=== PATIENT | male | born 1955 | race Caucasian/White ===

== ENCOUNTER 2017-02-02 19:59 | Inpatient (IN) | payer BC ==
[~2017-02-02] VITALS: Ht 188 cm; Wt 89.8 kg
[~2017-02-02 19:59] MED LIST: GABA-531 PO; LIB10 PO; OMEP20CA10 PO; PANT20TA2 PO
[2017-02-02 20:00] VITALS: BP_SYST 145
[2017-02-02] MEDS ORDERED: NITROGLYCERIN 0.4 MG TAB.SUBL SL ONE (20:15)
[2017-02-02] MEDS ORDERED: ASPIRIN 325 MG TABLET PO ONE (20:15)
[2017-02-02 20:45] LABS: BASOPHILS % (AUTO) 0.6 % (0.0-2.0); EOSINOPHILS % (AUTO) 0.7 % (0.0-4.0); HEMATOCRIT 41.6 % (36-54); LYMPHOCYTES # (AUTO) 1.6 K/uL (1.0-5.5); LYMPHOCYTES % (AUTO) 40.2 % (20.5-51.5); MEAN CORPUSCULAR HEMOGLOBIN 24 pg (27-31); MEAN CORPUSCULAR HGB CONC 31 % (32-36); MEAN CORPUSCULAR VOLUME 77 fL (79.0-98.0); MONOCYTES # (AUTO) 0.6 K/uL (0.0-1.0); MONOCYTES % (AUTO) 13.9 % (1.7-9.3); NEUTROPHILS # (AUTO) 1.9 K/uL (1.8-7.7); NEUTROPHILS % (AUTO) 44.6 % (40.0-70.0); PLATELET COUNT (AUTO) 339 K/uL (130-430); RED BLOOD CELL COUNT(AUTO) 5.42 MIL/uL (4.2-6.2); RED CELL DISTRIBUTION WIDTH 18.7 % (9.0-15.0); WHITE BLOOD COUNT (AUTO) 4.1 K/uL (4.8-10.8)
[2017-02-02 20:49] LABS: ANION GAP 14 (5-15); CALCIUM 8.6 mg/dL (8.4-11.0); CHLORIDE 104 mmol/L (98-107); CREATININE 0.91 mg/dL (0.55-1.30); GLUCOSE 102 mg/dL (70-99); POTASSIUM 3.3 mmol/L (3.5-5.1); SODIUM SERUM 145 mmol/L (136-145); UREA NITROGEN, BLOOD 10 mg/dL (8-21)
[2017-02-02 20:50] LABS: GFR AFRICAN AMERICAN 109 mL/min (>90)
[2017-02-02 20:55] LABS: ALANINE AMINOTRANSFERASE 35 U/L (12-78); ALBUMIN 3.7 g/dL (3.4-4.8); ASPARTATE AMINOTRANSFERASE 25 U/L (10-37); CREATINE KINASE, TOTAL 94 U/L (39-308); PROTHROMBIN TIME 10.8 SECS (9.5-12.5); TOTAL BILIRUBIN 0.3 mg/dL (0.0-1.0); TOTAL PROTEIN, SERUM 8.6 g/dL (6.4-8.3)
[2017-02-02 20:59] LABS: ACETAMINOPHEN < 1 ug/mL (1-30); SALICYLATE 1 mg/dL (3-30)
[2017-02-02 21:04] LABS: ALCOHOL, BLOOD 341 mg/dL (<10)
[2017-02-02] MEDS ORDERED: ONDANSETRON HCL 4 MG/2 ML VIAL IVP PRN (23:30)
[2017-02-02] MEDS ORDERED: FOLIC ACID 1 MG, THIAMINE HCL 100 MG, MAGNESIUM SULFATE 1 GM, MVI 10 ML in NACL 0.9% 1,... IV ONE (23:30)
[2017-02-03 01:16] VITALS: BP_SYST 147
[2017-02-03] MEDS: LORazepam 2 MG/ML VIAL IVP PRN ×3 (01:33→11:52)
[2017-02-03 04:00] VITALS: BP_SYST 146
[2017-02-03 06:39] LABS: EOSINOPHILS # (AUTO) 0.1 K/uL (0.0-0.4); EOSINOPHILS % (AUTO) 1.7 % (0.0-4.0); HEMATOCRIT 40.5 % (36-54); HEMOGLOBIN 12.6 g/dL (14.0-18.0); LYMPHOCYTES # (AUTO) 1.1 K/uL (1.0-5.5); LYMPHOCYTES % (AUTO) 31.5 % (20.5-51.5); MEAN CORPUSCULAR HEMOGLOBIN 24 pg (27-31); MEAN CORPUSCULAR HGB CONC 31 % (32-36); MEAN CORPUSCULAR VOLUME 77 fL (79.0-98.0); MONOCYTES # (AUTO) 0.5 K/uL (0.0-1.0); MONOCYTES % (AUTO) 15.5 % (1.7-9.3); NEUTROPHILS # (AUTO) 1.8 K/uL (1.8-7.7); NEUTROPHILS % (AUTO) 50.3 % (40.0-70.0); PLATELET COUNT (AUTO) 313 K/uL (130-430); RED BLOOD CELL COUNT(AUTO) 5.25 MIL/uL (4.2-6.2); RED CELL DISTRIBUTION WIDTH 18.6 % (9.0-15.0); WHITE BLOOD COUNT (AUTO) 3.5 K/uL (4.8-10.8)
[2017-02-03 07:01] LABS: CALCIUM 8.5 mg/dL (8.4-11.0); CREATININE 0.83 mg/dL (0.55-1.30); POTASSIUM 3.4 mmol/L (3.5-5.1)
[2017-02-03 07:23] LABS: ALBUMIN 3.5 g/dL (3.4-4.8); TOTAL BILIRUBIN 0.3 mg/dL (0.0-1.0); TOTAL PROTEIN, SERUM 8.2 g/dL (6.4-8.3)
[2017-02-03 07:45] VITALS: BP_SYST 176
[2017-02-03] MEDS ORDERED: PANTOPRAZOLE SODIUM 40 MG TAB PO SCH (09:00)
[2017-02-03] MEDS ORDERED: ASPIRIN 325 MG TABLET PO SCH (09:00)
[2017-02-03] MEDS ORDERED: ENOXAPARIN SODIUM 40 MG/0.4 ML SYRINGE SUBCUT SCH (09:00)
[2017-02-03] MEDS ORDERED: METOPROLOL TARTRATE 25 MG TABLET PO SCH (09:00)
[2017-02-03] MEDS ORDERED: FOLIC ACID 1 MG, THIAMINE HCL 100 MG, MAGNESIUM SULFATE 1 GM, MVI 10 ML in NACL 0.9% 1,... IV ONE (10:30)
[2017-02-03] MEDS ORDERED: THIAMINE HCL 100 MG TABLET PO ONE (11:15)
[2017-02-03] MEDS ORDERED: FOLIC ACID 1 MG TABLET PO ONE (11:30)
[2017-02-03 11:33] VITALS: BP_SYST 149
[2017-02-03] MEDS ORDERED: METO25TA6 PO (13:34)
[2017-02-03] MEDS ORDERED: ASPI81TA2 PO (13:35)
[2017-02-03] MEDS ORDERED: PRO40 PO (13:35)
[2017-02-03] MEDS ORDERED: THIA100T13 PO (13:36)
[2017-02-03] MEDS ORDERED: FOLI-43 PO (13:37)
[2017-02-03] MEDS ORDERED: chlordiazePOXIDE HCL 25 MG CAPSULE PO SCH (15:00)
[2017-02-03 15:06] VITALS: BP_SYST 150
[2017-02-03 16:04] VITALS: BP_SYST 150
[2017-02-03] MEDS ORDERED: chlordiazePOXIDE HCL 10 MG CAPSULE PO SCH (18:00)
[2017-02-03] MEDS ORDERED: OMEPRAZOLE 20 MG CAPSULE.DR (PriLOSEC) PO SCH (21:00)
[2017-02-03] MEDS ORDERED: GABAPENTIN 300 MG CAPSULE PO SCH (21:00)
[2017-02-04] MEDS ORDERED: THIAMINE HCL 100 MG TABLET PO SCH (09:00)
[2017-02-04] MEDS ORDERED: METOPROLOL TARTRATE 25 MG TABLET PO SCH (09:00)
[2017-02-04] MEDS ORDERED: FOLIC ACID 1 MG TABLET PO SCH (09:00)
== END 2017-02-03 18:15 | disposition home or self-care (01) | DRG 313 ==
LOC: SED 19:59 → STU 23:18
DX: R07.89 Other chest pain (principal); F10.229 Alcohol dependence with intoxication, unspecified; Z81.1 Family history of alcohol abuse and dependence; I25.2 Old myocardial infarction; I10 Essential (primary) hypertension; K22.70 Barrett's esophagus without dysplasia; Y90.8 Blood alcohol level of 240 mg/100 ml or more; Z79.899 Other long term (current) drug therapy
CPT/HCPCS: 36415; 71010; 80053; 82550-TC; 84484; 85025; 85610-TC; 85730-TC; 93005; 93306; 99285; G0480; G0481; G0482; J1650; J2060; J2405; J3411; J3475; J3490; J7030

== ENCOUNTER 2017-02-17 18:22 | Emergency (ER) | payer BC ==
[~2017-02-17] VITALS: Ht 193 cm; Wt 95.3 kg
[~2017-02-17 18:22] MED LIST changes: +ASPI81TA2 PO; +FOLI-43 PO; +METO25TA6 PO; -PANT20TA2 PO; +PRO40 PO; +THIA100T13 PO
[2017-02-17 18:24] VITALS: BP_SYST 138
[2017-02-17] MEDS ORDERED: chlordiazePOXIDE HCL 25 MG CAPSULE PO ONE (18:30)
[2017-02-17 19:03] LABS: LYMPHOCYTES # (AUTO) 1.6 K/uL (1.0-5.5); MONOCYTES # (AUTO) 0.6 K/uL (0.0-1.0)
[2017-02-17 19:06] LABS: BASOPHILS % (AUTO) 0.7 % (0.0-2.0); EOSINOPHILS % (AUTO) 0.9 % (0.0-4.0); HEMATOCRIT 42.7 % (36-54); HEMOGLOBIN 13.5 g/dL (14.0-18.0); LYMPHOCYTES % (AUTO) 38.1 % (20.5-51.5); MEAN CORPUSCULAR HEMOGLOBIN 24 pg (27-31); MEAN CORPUSCULAR HGB CONC 32 % (32-36); MEAN CORPUSCULAR VOLUME 77 fL (79.0-98.0); MONOCYTES % (AUTO) 12.8 % (1.7-9.3); NEUTROPHILS # (AUTO) 2.1 K/uL (1.8-7.7); NEUTROPHILS % (AUTO) 47.5 % (40.0-70.0); PLATELET COUNT (AUTO) 322 K/uL (130-430); RED BLOOD CELL COUNT(AUTO) 5.57 MIL/uL (4.2-6.2); RED CELL DISTRIBUTION WIDTH 18.7 % (9.0-15.0); WHITE BLOOD COUNT (AUTO) 4.3 K/uL (4.8-10.8)
[2017-02-17 19:13] LABS: PROTHROMBIN TIME 10.7 SECS (9.5-12.5)
[2017-02-17 19:14] LABS: CALCIUM 8.7 mg/dL (8.4-11.0); CREATININE 1.1 mg/dL (0.55-1.30); POTASSIUM 3.6 mmol/L (3.5-5.1)
[2017-02-17] MEDS ORDERED: NACL 0.9% 1,000 ML IV ONE (19:15)
[2017-02-17 19:19] LABS: ALBUMIN 3.9 g/dL (3.4-4.8); TOTAL BILIRUBIN 0.3 mg/dL (0.0-1.0); TOTAL PROTEIN, SERUM 8.8 g/dL (6.4-8.3)
[2017-02-17] MEDS ORDERED: ASPIRIN 81 MG TAB.CHEW PO ONE (20:00)
[2017-02-17] MEDS ORDERED: NITROGLYCERIN 0.4 MG TAB.SUBL SL ONE (20:39)
[2017-02-17] MEDS ORDERED: LORazepam 2 MG/ML VIAL (FOR ER USE) IVP ONE (20:45)
[2017-02-18 00:43] VITALS: BP_SYST 139
== END 2017-02-18 00:43 | disposition home or self-care (01) ==
LOC: SED 18:22
DX: R79.89 Other specified abnormal findings of blood chemistry (principal); I25.2 Old myocardial infarction; Z79.4 Long term (current) use of insulin
CPT/HCPCS: 36415; 71010; 80053; 83880; 84484; 85025; 85610; 85730; 93005; 96374; 99285; G0482; J2060; J7030

== ENCOUNTER 2018-01-17 18:32 | Emergency (ER) | payer BC ==
[~2018-01-17] VITALS: Ht 193 cm; Wt 93.0 kg
[2018-01-17 18:41] VITALS: BP_SYST 120
[2018-01-17] MEDS ORDERED: NACL 0.9% 1,000 ML IV ONE (19:39)
[2018-01-17] MEDS ORDERED: ONDANSETRON HCL 4 MG/2 ML VIAL IVP ONE (19:45)
[2018-01-17] MEDS ORDERED: PANTOPRAZOLE SODIUM 40 MG/VIAL (PROTONIX) IVP ONE (19:45)
[2018-01-17 20:15] LABS: BASOPHILS % (AUTO) 0.6 % (0.0-2.0); EOSINOPHILS % (AUTO) 0.7 % (0.0-4.0); HEMOGLOBIN 12.8 g/dL (14.0-18.0); LYMPHOCYTES # (AUTO) 1.3 K/uL (1.0-5.5); LYMPHOCYTES % (AUTO) 20.5 % (20.5-51.5); MEAN CORPUSCULAR HEMOGLOBIN 24 pg (27-31); MEAN CORPUSCULAR HGB CONC 32 % (32-36); MEAN CORPUSCULAR VOLUME 73 fL (79.0-98.0); MONOCYTES # (AUTO) 0.7 K/uL (0.0-1.0); MONOCYTES % (AUTO) 11.2 % (1.7-9.3); NEUTROPHILS # (AUTO) 4.3 K/uL (1.8-7.7); PLATELET COUNT (AUTO) 241 K/uL (130-430); RED BLOOD CELL COUNT(AUTO) 5.46 MIL/uL (4.2-6.2); RED CELL DISTRIBUTION WIDTH 19.7 % (9.0-15.0); WHITE BLOOD COUNT (AUTO) 6.3 K/uL (4.8-10.8)
[2018-01-17 20:28] LABS: CALCIUM 8.9 mg/dL (8.4-11.0); CREATININE 0.84 mg/dL (0.55-1.30)
[2018-01-17 20:30] LABS: POTASSIUM 2.7 mmol/L (3.5-5.1); PROTHROMBIN TIME 10.2 SECS (9.5-12.5)
[2018-01-17 20:35] LABS: ALBUMIN 3.2 g/dL (3.4-4.8); TOTAL BILIRUBIN 0.3 mg/dL (0.0-1.0)
== END 2018-01-17 20:00 | disposition left against medical advice (07) ==
LOC: SED 18:32
DX: K92.2 Gastrointestinal hemorrhage, unspecified (principal); F10.129 Alcohol abuse with intoxication, unspecified; I25.2 Old myocardial infarction; Z79.82 Long term (current) use of aspirin; Z79.899 Other long term (current) drug therapy; Z53.20 Procedure and treatment not carried out because of patient's decision for unspecified reasons; Y90.7 Blood alcohol level of 200-239 mg/100 ml
CPT/HCPCS: 36415; 80053; 83690; 85025; 85610; 85730; 99284; G0482

== ENCOUNTER 2018-01-18 22:44 | Inpatient (IN) | payer BC ==
[~2018-01-18] VITALS: Ht 193 cm; Wt 93.0 kg
[2018-01-18 22:45] VITALS: BP_SYST 131
[2018-01-18] MEDS ORDERED: NACL 0.9% 1,000 ML IV ONE ×3 (22:50→23:45)
[2018-01-18] MEDS ORDERED: ONDANSETRON HCL 4 MG/2 ML VIAL IVP ONE (23:00)
[2018-01-18 23:18] LABS: BASOPHILS % (AUTO) 0.3 % (0.0-2.0); EOSINOPHILS # (AUTO) 0.1 K/uL (0.0-0.4); EOSINOPHILS % (AUTO) 1.1 % (0.0-4.0); HEMOGLOBIN 10.8 g/dL (14.0-18.0); LYMPHOCYTES # (AUTO) 1.5 K/uL (1.0-5.5); LYMPHOCYTES % (AUTO) 17.8 % (20.5-51.5); MEAN CORPUSCULAR HEMOGLOBIN 24 pg (27-31); MEAN CORPUSCULAR HGB CONC 33 % (32-36); MEAN CORPUSCULAR VOLUME 74 fL (79.0-98.0); MONOCYTES # (AUTO) 0.6 K/uL (0.0-1.0); NEUTROPHILS % (AUTO) 73.8 % (40.0-70.0); PLATELET COUNT (AUTO) 226 K/uL (130-430); RED BLOOD CELL COUNT(AUTO) 4.46 MIL/uL (4.2-6.2)
[2018-01-18 23:23] LABS: ANION GAP 9 (5-15); CALCIUM 8.7 mg/dL (8.4-11.0); CHLORIDE 96 mmol/L (98-107); CREATININE 0.98 mg/dL (0.55-1.30); GLUCOSE 163 mg/dL (70-99); SODIUM SERUM 137 mmol/L (136-145); UREA NITROGEN, BLOOD 31 mg/dL (8-21)
[2018-01-18 23:27] LABS: WHITE BLOOD COUNT (AUTO) 8.2 K/uL (4.8-10.8)
[2018-01-18] MEDS ORDERED: KCL 40 mEq in 100 mL (PREMIX) 100 ML IV ONE (23:30)
[2018-01-18 23:36] LABS: ALANINE AMINOTRANSFERASE 56 U/L (12-78); ASPARTATE AMINOTRANSFERASE 32 U/L (10-37); LIPASE 213 U/L (73-393); TOTAL BILIRUBIN 0.5 mg/dL (0.0-1.0)
[2018-01-18 23:45] LABS: ALCOHOL, BLOOD < 3 mg/dL (<10); GFR AFRICAN AMERICAN 99 mL/min (>90)
[2018-01-18] MEDS ORDERED: KCL 20 mEq in 100 mL (PREMIX) 100 ML IV ONE (23:45)
[2018-01-18] MEDS ORDERED: CLOPIDOGREL BISULFATE 75 MG TABLET PO ONE (23:45)
[2018-01-18 23:46] LABS: POTASSIUM 2.6 mmol/L (3.5-5.1)
[2018-01-19 00:04] LABS: INR 1.1 (0.80-1.20)
[2018-01-19] MEDS ORDERED: HYDR10SY15 PO (00:10)
[2018-01-19] MEDS ORDERED: HYDR-3698 PO (00:11)
[2018-01-19] MEDS ORDERED: LORazepam 2 MG/ML VIAL (FOR ER USE) IVP ONE (00:15)
[2018-01-19] MEDS ORDERED: FOLIC ACID 1 MG, THIAMINE HCL 100 MG, MAGNESIUM SULFATE 1 GM, MVI 10 ML in NACL 0.9% 1,... IV ONE (01:00)
[2018-01-19] MEDS ORDERED: ACETAMINOPHEN 325 MG TABLET PO PRN (01:00)
[2018-01-19] MEDS ORDERED: POTASSIUM CHLORIDE 20 MEQ/PKT PACKET PO ONE (01:00)
[2018-01-19] MEDS ORDERED: ALBUTEROL SULFATE 0.083% 2.5 MG/3 ML VIAL.NEB INH PRN (01:00)
[2018-01-19] MEDS ORDERED: MORPHINE 2 MG/ML INJ. SYRINGE IVP PRN (01:00)
[2018-01-19] MEDS ORDERED: ONDANSETRON HCL 4 MG/2 ML VIAL IVP PRN (01:00)
[2018-01-19] MEDS ORDERED: KCL 20 mEq in 100 mL (PREMIX) 100 ML IV ONE (01:00)
[2018-01-19 01:23] VITALS: BP_SYST 109
[2018-01-19] MEDS ORDERED: MVI 10 ML VIAL IV ONE (01:45)
[2018-01-19] MEDS ORDERED: THIAMINE HCL 100 MG/ML VIAL ONE (01:45)
[2018-01-19] MEDS ORDERED: MAGNESIUM SULFATE 1 GM/2 ML VIAL ONE (01:45)
[2018-01-19] MEDS ORDERED: FOLIC ACID 5 MG/ML VIAL IV ONE (01:45)
[2018-01-19] MEDS: PANTOPRAZOLE SODIUM 40 MG/VIAL (PROTONIX) IVP SCH ×2 (01:53→08:58)
[2018-01-19] MEDS: NACL 0.9% 1,000 ML IV SCH ×2 (03:55→08:58)
[2018-01-19 05:11] VITALS: BP_SYST 109
[2018-01-19 06:31] LABS: BASOPHILS % (AUTO) 0.4 % (0.0-2.0); EOSINOPHILS # (AUTO) 0.1 K/uL (0.0-0.4); EOSINOPHILS % (AUTO) 1.9 % (0.0-4.0); HEMATOCRIT 27.1 % (36-54); HEMOGLOBIN 8.7 g/dL (14.0-18.0); LYMPHOCYTES # (AUTO) 1.2 K/uL (1.0-5.5); LYMPHOCYTES % (AUTO) 18.2 % (20.5-51.5); MEAN CORPUSCULAR HEMOGLOBIN 24 pg (27-31); MEAN CORPUSCULAR HGB CONC 32 % (32-36); MEAN CORPUSCULAR VOLUME 75 fL (79.0-98.0); MONOCYTES # (AUTO) 0.5 K/uL (0.0-1.0); MONOCYTES % (AUTO) 7.3 % (1.7-9.3); NEUTROPHILS # (AUTO) 4.5 K/uL (1.8-7.7); NEUTROPHILS % (AUTO) 72.2 % (40.0-70.0); PLATELET COUNT (AUTO) 188 K/uL (130-430); RED BLOOD CELL COUNT(AUTO) 3.61 MIL/uL (4.2-6.2); RED CELL DISTRIBUTION WIDTH 19.3 % (9.0-15.0); WHITE BLOOD COUNT (AUTO) 6.3 K/uL (4.8-10.8)
[2018-01-19] MEDS ORDERED: MORPHINE 4 MG/ML INJ. SYRINGE IVP PRN (06:45)
[2018-01-19 06:46] LABS: CALCIUM 7.9 mg/dL (8.4-11.0); CREATININE 0.67 mg/dL (0.55-1.30); POTASSIUM 3.6 mmol/L (3.5-5.1)
[2018-01-19 06:54] LABS: ALBUMIN 2.4 g/dL (3.4-4.8); TOTAL BILIRUBIN 0.4 mg/dL (0.0-1.0)
[2018-01-19 08:13] VITALS: BP_SYST 117
[2018-01-19] MEDS ORDERED: LORazepam 2 MG/ML VIAL IVP PRN (09:45)
[2018-01-19] MEDS ORDERED: METOPROLOL SUCCINATE 25 MG TAB.SR.24H (TOPROL XL) PO SCH (10:15)
[2018-01-19] MEDS ORDERED: METOPROLOL SUCCINATE 25 MG TAB.SR.24H (TOPROL XL) PO ONE (10:30)
[2018-01-19] MEDS ORDERED: chlordiazePOXIDE HCL 25 MG CAPSULE PO ONE (11:00)
[2018-01-19 12:59] VITALS: BP_SYST 117
[2018-01-19] MEDS ORDERED: chlordiazePOXIDE HCL 25 MG CAPSULE PO SCH (15:00)
== END 2018-01-19 14:18 | disposition left against medical advice (07) | DRG 378 ==
LOC: SED 22:44 → SMU 01-19 00:47 → STU 01-19 01:18
PROVIDERS: ADMIT Internal Medicine; ATTEND Internal Medicine
DX: K92.2 Gastrointestinal hemorrhage, unspecified (principal); I47.1 Supraventricular tachycardia; G62.9 Polyneuropathy, unspecified; D50.0 Iron deficiency anemia secondary to blood loss (chronic); F10.20 Alcohol dependence, uncomplicated; F32.9 Major depressive disorder, single episode, unspecified; I25.10 Atherosclerotic heart disease of native coronary artery without angina pectoris; K22.70 Barrett's esophagus without dysplasia; Z53.21 Procedure and treatment not carried out due to patient leaving prior to being seen by health care provider; Z81.1 Family history of alcohol abuse and dependence
CPT/HCPCS: 36415; 71045; 80053; 83690-TC; 83735-TC; 84484; 85025; 85610-TC; 85730-TC; 93005; 93306; 96365; 96366; 96375; 99291; C9113; G0482; J2060; J2270; J2405; J3411; J3475; J3480; J3490; J7030

== ENCOUNTER 2018-01-21 20:45 | Inpatient (IN) | payer BC ==
[~2018-01-21] VITALS: Ht 193 cm; Wt 91.2 kg
[~2018-01-21 20:45] MED LIST changes: -FOLI-43 PO; +HYDR-3698 PO; -LIB10 PO; -METO25TA6 PO; -PRO40 PO; -THIA100T13 PO
--- NOTE | 2018-01-21 20:50 | NUR ---
Patient to ER bed 06 to gown for evaluation. Side rails up.
--- NOTE | 2018-01-21 20:51 | NUR ---
Pt AAOx4 presents to ED c/o L side chest pain with L arm tingling and SOB. Pt states he had 1 syncopal episode of cofee ground emesis today. Pt recently admitted 2 days ago for elevated troponin and left AMA. Pt has hx of alcoholism. Pt skin pink warm and dry, breathing even and unlabored. No other injuries/complaints per pt/noted. Will continue to monitor.
[2018-01-21 20:54] VITALS: BP_SYST 123
--- NOTE | 2018-01-21 20:55 | NUR ---
ER Dr. Gonzalez at bedside examining patient.
[2018-01-21] MEDS ORDERED: NACL 0.9% 1,000 ML IV ONE (20:56)
[2018-01-21] MEDS ORDERED: ASPIRIN 81 MG TAB.CHEW PO ONE (21:00)
[2018-01-21] MEDS ORDERED: LORazepam 2 MG/ML VIAL (FOR ER USE) IVP ONE (22:00)
--- NOTE | 2018-01-21 22:12 | NUR ---
Medication administered. Pt tolerated well. No adverse reactions noted.
[2018-01-21 22:17] LABS: ANION GAP 11 (5-15); CALCIUM 8.7 mg/dL (8.4-11.0); CHLORIDE 101 mmol/L (98-107); CREATININE 0.95 mg/dL (0.55-1.30); GLUCOSE 122 mg/dL (70-99); SODIUM SERUM 140 mmol/L (136-145); UREA NITROGEN, BLOOD 15 mg/dL (8-21)
[2018-01-21 22:19] LABS: BASOPHILS % (AUTO) 0.5 % (0.0-2.0); EOSINOPHILS # (AUTO) 0.1 K/uL (0.0-0.4); EOSINOPHILS % (AUTO) 1.7 % (0.0-4.0); LYMPHOCYTES # (AUTO) 1.2 K/uL (1.0-5.5); LYMPHOCYTES % (AUTO) 21.1 % (20.5-51.5); MEAN CORPUSCULAR HEMOGLOBIN 25 pg (27-31); MEAN CORPUSCULAR HGB CONC 33 % (32-36); MEAN CORPUSCULAR VOLUME 78 fL (79.0-98.0); MONOCYTES # (AUTO) 0.5 K/uL (0.0-1.0); MONOCYTES % (AUTO) 9.9 % (1.7-9.3); NEUTROPHILS # (AUTO) 3.7 K/uL (1.8-7.7); NEUTROPHILS % (AUTO) 66.8 % (40.0-70.0); PLATELET COUNT (AUTO) 215 K/uL (130-430); RED BLOOD CELL COUNT(AUTO) 2.65 MIL/uL (4.2-6.2); WHITE BLOOD COUNT (AUTO) 5.5 K/uL (4.8-10.8)
[2018-01-21 22:25] LABS: ALANINE AMINOTRANSFERASE 46 U/L (12-78); ASPARTATE AMINOTRANSFERASE 27 U/L (10-37); TOTAL BILIRUBIN 0.2 mg/dL (0.0-1.0)
[2018-01-21 22:27] LABS: HEMATOCRIT 20.7 % (36-54); HEMOGLOBIN 6.7 g/dL (14.0-18.0)
--- NOTE | 2018-01-21 22:30 | NUR ---
Critical value Hgb-6.7; Hct-20.7; K-2.8. Dr. Gonzalez notified. Orders to be received
[2018-01-21 22:39] LABS: ALCOHOL, BLOOD < 3 mg/dL (<10); GFR AFRICAN AMERICAN 103 mL/min (>90); POTASSIUM 2.8 mmol/L (3.5-5.1)
[2018-01-21] MEDS ORDERED: ONDANSETRON HCL 4 MG/2 ML VIAL IVP ONE (22:45)
[2018-01-21 22:54] LABS: PROTHROMBIN TIME 10.1 SECS (9.5-12.5)
[2018-01-21] MEDS ORDERED: KCL 20 mEq in 100 mL (PREMIX) 100 ML IV ONE (23:00)
--- NOTE | 2018-01-21 23:16 | NUR ---
Medication administered. Pt tolerated well. No adverse reactions noted.
[2018-01-21] MEDS ORDERED: OCTREOTIDE ACETATE 500 MCG in NS 247.5 ML IV ONE (23:30)
--- NOTE | 2018-01-21 23:55 | NUR ---
Recieved report from Oscar ROSE. Will assume care at this time.
[2018-01-22] VITALS (23 sets, daily range): BP systolic 90–135
--- NOTE | 2018-01-22 | NUR ---
End of life care decisions discussed with patient by Dr. Gonzalez. Opportunity for questions and concerns addressed. Patient's code status is Full Code paperwork completed and placed in chart.
--- NOTE | 2018-01-22 00:33 | NUR ---
Medication reconciliation completed with information provided by pt. Any prior medication reconciliation on file was reviewed and corrected.
--- NOTE | 2018-01-22 00:55 | NUR ---
ADMISSION NOTE Received patient from ER via gurgeovany. Pt placed in ICU 3. Report received from MILTON Tinsley. Patient admitted with diagnosis of GI Bleed. Patient is awake, alert, oriented X 3. Patient oriented to hospital room, call light, toileting, pain management and safety-teach back done. Personal belongings checked and Belongings List documented. Call light within reach.
--- NOTE | 2018-01-22 01:00 | NUR ---
Transfer to telemetry via ACLS protocol. Licensed nurse present. IV present no signs or symptoms of infiltration.
--- NOTE | 2018-01-22 01:00 | NUR ---
Patient will be admitted to care of Dr. Ward. Admitted to intensive care unit. Will go to bed 3. Belongings list completed. Summary report printed. Report will be given at bedside.
[2018-01-22] MEDS: PANTOPRAZOLE SODIUM 40 MG/VIAL (PROTONIX) IVP SCH ×2 (01:49→09:05)
[2018-01-22] MEDS: D5/0.45 NS 1,000 ML IV SCH ×4 (01:50→22:37)
[2018-01-22] MEDS ORDERED: PANTOPRAZOLE SODIUM 40 MG/VIAL (PROTONIX) ONE ×2 (01:52→19:51)
--- NOTE | 2018-01-22 02:50 | NUR ---
Blood transfusion Crossmatched blood per facility protocol. 1 unit PRBC initiated, will monitor for adverse reaction.
--- NOTE | 2018-01-22 03:05 | NUR ---
Blood transfusion No adverse reactions noted. Will continue to monitor
--- NOTE | 2018-01-22 04:30 | NUR ---
Dr Ward Received phone call from Dr Ward inquiring about pt condition. Updated MD on pt condition. Instructed by MD to bolus 2nd unit of PRBCs within 1 hour.
--- NOTE | 2018-01-22 04:48 | NUR ---
2nd unit PRBC Crossmatched blood per facility protocol. Initiated 2nd unit of PRBCs. Will monitor for adverse reactions.
--- NOTE | 2018-01-22 06:40 | NUR ---
Pharmacy Pt has new order for banana bag. Pharmacy notified, tech reports they will bring.
--- NOTE | 2018-01-22 06:43 | NUR ---
GI consult called: for Dr. Wiley, regarding GI bleed, ordered by Dr. Ward, spoke with Shaina.
--- NOTE | 2018-01-22 06:45 | NUR ---
Lab draw Certified Genetic Counselor bedside drawing blood for lab results
--- NOTE | 2018-01-22 07:10 | NUR ---
End of shift report Endorsed pt care and SBAR to MILTON Adam.
[2018-01-22 07:14] LABS: HEMOGLOBIN 7.1 g/dL (14.0-18.0)
--- NOTE | 2018-01-22 07:15 | NUR ---
CRITICAL LAB: H/H 7.1/.7 MD TO BE MADE AWARE. ORDERS TO FOLLOW.
[2018-01-22 07:16] LABS: HEMATOCRIT 21.7 % (36-54)
[2018-01-22] MEDS: BANANA BAG 1 EA, FOLIC ACID 1 MG, THIAMINE HCL 100 MG, MAGNESIUM SULFATE 1 GM, MVI 10 M... IV SCH ×5 (07:18)
--- NOTE | 2018-01-22 07:20 | NUR ---
Banana Bag Received Banana Bag from pharmacy.
--- NOTE | 2018-01-22 07:30 | NUR ---
OPENING NOTE PATIENT RESTING COMFORTABLY. VITAL SIGNS STABLE. PATIENT HAVING BANANA BAG, STARTED BY PM SHIFT NURSE. PATIENT HAS SANDOSTATIN DRIP AT 12.5. PATIENT IS ON ROOM AIR, 98%. PATIENT AFEBRILE. PATIENT ENCOURAGED TO CALL IF NEEDS ARISE. PATIENT HAS LOW H/H WILL NOTIFY MD OF CRITICAL LAB. PATIENT HAD 2 PRBC UNITS DURING PM SHIFT. PATIENT ENCOURAGED TO CALL IF NEEDS ARISE. PATIENT HAS URINAL AT BEDSIDE FOR EASE OF USE. WILL CONTINUE TO MONITOR PATIENT FOR CHANGES IN STATUS.
[2018-01-22 08:51] LABS: CREATININE 0.79 mg/dL (0.55-1.30); POTASSIUM 3.8 mmol/L (3.5-5.1)
--- NOTE | 2018-01-22 09:00 | NUR ---
NOTE PATIENT RESTING COMFORTABLY, HE HAS COMPLAINTS OF PAIN OF HEADACHE, AND ACID REFLUX. PATIENT AWARE OF PROTONIX MORNING MEDICATIONS. PATIENT ENCOURAGED TO REST, CURTAIN CLOSED AND SHADE ARE DRAWN FOR LIGHT DIM. PATIENT PLAN OF CARE DISCUSSED, PATIENT AWARE OF LOW H/H. PATIENT VITAL SIGNS ARE STABLE.
--- NOTE | 2018-01-22 10:30 | NUR ---
MALENA SPOKE WITH DR. GUY VIA PHONE. AWARE OF LOW H/H. PATIENT TO HAVE CONSENT SIGNED FOR EGD. PATIENT MADE AWARE OF RETURN CALL, AND PENDING CONSENT SIGNATURE.
--- NOTE | 2018-01-22 10:47 | NUR ---
CONSENT CONSENT WAS SIGNED BY PATIENT FOR EGD WITH DR. GUY. KNOWS PROCEDURE MAY TAKE PLACE TODAY AND NPO STATUS IS CONTINUED. BED CONTROL, HALEIGH MADE AWARE OF POSSIBLE EGD TODAY.
--- NOTE | 2018-01-22 12:14 | NUR ---
Note Patient resting comfortably. Needs have been met at this time. Patient aware of pending procedure, EGD. Patient having mild anxiety, attempting to keep room quiet, calm, and promoting rest. Will continue to follow up and monitor patient for changes in status.
[2018-01-22] MEDS ORDERED: SIMETHICONE 40 MG/0.6 ML ML ONE (13:40)
--- NOTE | 2018-01-22 13:57 | NUR ---
PATIENT RESTING: Patient resting quietly. IVF running per md orders. Sandostatin as ordered. No acute distress noted. Vital signs within normal range. Patient pending EGD, aware of pending procedure. Will continue to follow up and monitor.
[2018-01-22] MEDS: MIDAZOLAM HCL 5 MG/5 ML VIAL ONE ×5 (14:19→14:50)
[2018-01-22] MEDS: fentaNYL CITRATE/PF 100 MCG/2 ML AMP ONE ×4 (14:19→14:49)
--- NOTE | 2018-01-22 16:22 | NUR ---
PATIENT RESTING: Patient resting quietly. No acute distress noted. Vital signs within normal range. Discussed with patient plan of care, patient aware of findings on EGD. Patient encouraged to call if needs arise. Will continue to follow up and monitor patient for changes in status. Sandostatin drip per md orders. Patient has IVF running per MD orders.
[2018-01-22 17:38] LABS: HEMOGLOBIN 7.5 g/dL (14.0-18.0)
--- NOTE | 2018-01-22 18:13 | NUR ---
NOTE AWAITING TO GIVE REPORT TO ONCOLOGY PHARMACIST NURSE. PATIENT SITTING UPRIGHT FOR DINNER. CLEAR LIQUID DIET, NO REDS. PATIENT ENCOURAGED TO CALL IF NEEDS ARISE. PATIENT VITALS ARE STABLE AT THIS TIME.
--- NOTE | 2018-01-22 19:18 | NUR ---
MALENA GUY RETURNED CALL. OKAY TO DISCONTINUE SANDOSTATIN DRIP. START PROTONIX DRIP, ORDERS TO BE ENTERED BY NURSE. WILL CONTINUE TO FOLLOW UP AND MONITOR.
[2018-01-22] MEDS ORDERED: PANTOPRAZOLE SODIUM 80 MG in NS 100 ML IV ONE (19:30)
--- NOTE | 2018-01-22 19:30 | NUR ---
NOTE ENDORSED CARE TO MILTON DAO.
--- NOTE | 2018-01-22 19:30 | NUR ---
Beginning of shift assessment Pt lying in bed AA&Ox3, able to make needs known able to follow commands. Respirations even and unlabored. Pt c/o 3/10 headache. 20 g IV to L FA, SL. 20 g IV to R FA infusing IVF. No s/s of infection or infiltration. Pt voids to urinal. 400 ml of clear yellow urine noted. Call light within reach, bed in low position for safety. Will continue to monitor
--- NOTE | 2018-01-22 19:32 | NUR ---
Dr Ward paged Pt c/o 11/24 headache. Ed thomas for Sylvia. Will await call back
--- NOTE | 2018-01-22 19:38 | NUR ---
Dr Ward Spoke w Dr Ward. New orders received. Will carry out per MD order
[2018-01-22] MEDS ORDERED: ACETAMINOPHEN 325 MG TABLET PO PRN (19:45)
[2018-01-22] MEDS: PANTOPRAZOLE SODIUM 40 MG in NS 50 ML IV SCH (20:49)
[2018-01-22] MEDS ORDERED: GABAPENTIN 300 MG CAPSULE PO SCH (21:00)
[2018-01-22] MEDS: LORazepam 2 MG/ML VIAL IVP PRN (22:37)
[2018-01-22 23:15] LABS: HEMATOCRIT 23.3 % (36-54); HEMOGLOBIN 7.8 g/dL (14.0-18.0)
[2018-01-23] VITALS (16 sets, daily range): BP systolic 95–151
--- NOTE | 2018-01-23 | NUR ---
Rounds Pt AA&Ox3, able to make needs known. Respirations even and unlabored. No acute changes in condition noted at this time.
[2018-01-23] MEDS: PANTOPRAZOLE SODIUM 40 MG in NS 50 ML IV SCH ×3 (01:30→11:00)
--- NOTE | 2018-01-23 04:00 | NUR ---
Rounds Pt AA&Ox3, able to make needs known. Respirations even and unlabored. No acute changes in condition noted at this time.
[2018-01-23] MEDS: BANANA BAG 1 EA, FOLIC ACID 1 MG, THIAMINE HCL 100 MG, MAGNESIUM SULFATE 1 GM, MVI 10 M... IV SCH ×5 (05:17)
[2018-01-23 06:20] LABS: HEMATOCRIT 24.2 % (36-54)
--- NOTE | 2018-01-23 07:06 | NUR ---
End of shift report Endorsed pt care and SBAR to MILTON Alvarez.
--- NOTE | 2018-01-23 07:48 | NUR ---
AM ROUNDS: Patient is resting in bed. No s/s of distress noted. Will continue to monitor.
[2018-01-23] MEDS: LORazepam 2 MG/ML VIAL IVP PRN (08:03)
--- NOTE | 2018-01-23 09:03 | NUR ---
MD ROUNDS: Dr. Ward in to see patient.
--- NOTE | 2018-01-23 09:08 | NUR ---
COMMUNICATION: Per Dr. Ward, patient to be discharged if he tolerates meal at lunch.
[2018-01-23] MEDS: D5/0.45 NS 1,000 ML IV SCH (09:16)
--- NOTE | 2018-01-23 11:00 | NUR ---
WOOL WASHING MACHINE OPERATOR: In to see patient.
--- NOTE | 2018-01-23 11:11 | NUR ---
Social Service Note: BOAT RIGGER met with pt at bedside; pt is known to BOAT RIGGER from previous admission. Pt states that he recently left sober living after being in sober living for 9 months. Pt states that he moved back home and started drinking vodka again. Pt states that he did not give himself time to set up a support network. BOAT RIGGER spoke with pt about attending AA meetings and/or an outpatient program. Pt appears open and willing to build a support network to maintain sobriety. BOAT RIGGER provided pt with a listing of AA meetings for [place] and Substance Abuse Treatment Providers. BOAT RIGGER will remain available for support and will follow up as needed.
[2018-01-23 11:38] LABS: HEMATOCRIT 24.8 % (36-54); HEMOGLOBIN 8.2 g/dL (14.0-18.0)
--- NOTE | 2018-01-23 12:31 | NUR ---
DC planning: Reviewed INTERMEDIATE SCHOOL TEACHER note--plan is for discharge home from ICU--ICU nurse Harkia Kim aware of dc plan--will f/u as needed--FRANCISCO JAVIER ROSE
--- NOTE | 2018-01-23 13:15 | NUR ---
REPORT: Received from MILTON Sosa for continuation of care. Addendum: 01/23/18 at 1327 by Rikki Hawthorne RN Disregard. Note meant for another patient.
--- NOTE | 2018-01-23 14:28 | NUR ---
D/C Patient Patient given medication reconciliation form and D/C instructions. Exit Care provided. Patient verbalized understanding. MD discussed with patient the results and treatment provided. Ambulatory with steady gait for discharge to home. Patient in stable condition, ID band removed. IV catheter removed, intact and dressing applied, no active bleeding. Rx of protonix given. Patient educated on pain management. All belongings sent with patient.
--- NOTE | 2018-01-24 17:05 | NUR ---
Discharge Follow Up Phone Call MAILROOM COORDINATOR phoned patient, . Patient stated he was doing okay. He did not fill his prescription because he has omeprazole at home already. He has a call in to his PCP, Dr Ness, for a follow up appointment. He will call the GI tomorrow. MAILROOM COORDINATOR offered to assist, but patient preferred to make his own appointment. Patient state he did not look for AA meetings yet. Discussed. Patient is reaching out to friend and family for support. Patient is aware of the sever consequences to his health of drinking again. Discussed possible marriage counseling. Patient will consider. Patient stated he was surprised to be discharged from the ICU but that he was managing okay. He had no other questions or concerns.
== END 2018-01-23 14:28 | disposition home or self-care (01) | DRG 381 ==
LOC: SED 20:45 → SIC 23:28
PROVIDERS: ADMIT Internal Medicine Hospice and Palliative Medicine; ATTEND Internal Medicine Hospice and Palliative Medicine
PROC: 0DB68ZX Excision of Stomach, Via Natural or Artificial Opening Endoscopic, Diagnostic (ICD-10-PCS; 2018-01-22)
PROC: 30233N1 Transfusion of Nonautologous Red Blood Cells into Peripheral Vein, Percutaneous Approach (ICD-10-PCS; 2018-01-22)
PROC: 0DB38ZX Excision of Lower Esophagus, Via Natural or Artificial Opening Endoscopic, Diagnostic (ICD-10-PCS; principal; 2018-01-22 14:30)
DX: K22.11 Ulcer of esophagus with bleeding (principal); F10.239 Alcohol dependence with withdrawal, unspecified; K29.71 Gastritis, unspecified, with bleeding; D64.9 Anemia, unspecified; E87.6 Hypokalemia; Z79.899 Other long term (current) drug therapy; Z79.82 Long term (current) use of aspirin
CPT/HCPCS: 36415; 43239; 71045; 80048; 80053; 84484; 85018-TC; 85025; 85610-TC; 85730-TC; 86886; 86900; 86901; 86920; 87081; 88305; 88312; 88313; 93005; 96361; 96365; 96366; 96375; C9113; G0482; J2060; J2250; J2405; J3010; J3411; J3475; J3480; J3490; J7030; J7050; P9021

== ENCOUNTER 2021-09-05 18:16 | Emergency (ER) | payer BC, OTHER ==
[~2021-09-05] VITALS: Ht 167.6 cm; Wt 72.6 kg
[~2021-09-05 18:16] MED LIST changes: -ASPI81TA2 PO; -HYDR-3698 PO; -OMEP20CA10 PO
[2021-09-05 18:31] VITALS: BP_SYST 146
[2021-09-05] MEDS ORDERED: TEMA15CA5 PO (19:02)
[2021-09-05] MEDS ORDERED: HYDR-4038 PO (19:02)
[2021-09-05] MEDS ORDERED: PRO40 PO (19:02)
[2021-09-05] MEDS ORDERED: SER25 PO (19:02)
[2021-09-05] MEDS ORDERED: DRON5CAP26 PO (19:02)
[2021-09-05 20:22] LABS: BASOPHILS % (AUTO) 0.3 % (0.0-2.0); LYMPHOCYTES # (AUTO) 0.9 K/uL (1.0-5.5); LYMPHOCYTES % (AUTO) 10.7 % (20.5-51.5); MEAN CORPUSCULAR HEMOGLOBIN 28 pg (27-31); MEAN CORPUSCULAR HGB CONC 33 % (32-36); MEAN CORPUSCULAR VOLUME 85 fL (79.0-98.0); MONOCYTES # (AUTO) 0.7 K/uL (0.0-1.0); NEUTROPHILS # (AUTO) 6.6 K/uL (1.8-7.7); PLATELET COUNT (AUTO) 337 K/uL (130-430); RED CELL DISTRIBUTION WIDTH 14.9 % (9.0-15.0); WHITE BLOOD COUNT (AUTO) 8.2 K/uL (4.8-10.8)
[2021-09-05 20:48] LABS: UREA NITROGEN, BLOOD 18 mg/dL (8-21)
[2021-09-05 21:30] LABS: ALBUMIN 3.9 g/dL (3.4-4.8)
[2021-09-05 21:44] LABS: CHLORIDE 104 mmol/L (98-107); POTASSIUM 4.2 mmol/L (3.5-5.1)
[2021-09-05 22:12] LABS: ANION GAP 14 (5-15); CALCIUM 9.3 mg/dL (8.4-11.0); GLUCOSE 110 mg/dL (70-99); SODIUM SERUM 142 mmol/L (136-145)
[2021-09-05 22:18] LABS: ALANINE AMINOTRANSFERASE 24 U/L (12-78); ASPARTATE AMINOTRANSFERASE 17 U/L (10-37); TOTAL BILIRUBIN 0.4 mg/dL (0.0-1.0)
[2021-09-05 22:31] LABS: ALCOHOL, BLOOD < 3 mg/dL (<10); GFR AFRICAN AMERICAN 108 mL/min (>90)
[2021-09-05 22:32] LABS: ACETAMINOPHEN < 1 ug/mL (1-30)
[2021-09-05 23:37] VITALS: BP_SYST 126
== END 2021-09-05 23:37 | disposition home or self-care (01) ==
LOC: SED 18:16
DX: G47.00 Insomnia, unspecified (principal); R46.89 Other symptoms and signs involving appearance and behavior; Z79.899 Other long term (current) drug therapy
CPT/HCPCS: 36415; 80053; 85025; 93005; 99284; G0480; G0481; G0482